=== PATIENT | male | born 1970 | race Caucasian/White ===

== ENCOUNTER 2021-03-30 12:08 | Day surgery (SDC) | payer OTHER ==
[~2021-03-30] VITALS: Ht 185.4 cm; Wt 138.0 kg
[~2021-03-30 12:08] MED LIST: OMEP20ER PO; Prinivil10 MG PO
--- NOTE | 2021-03-30 13:06 | NUR ---
03/30/21 1306 Eunice Gan HISTORY,CHART, MEDICATIONS AND ALLERGIES REVIEWED BEFORE START OF PROCEDURE. PATIENT CONFIRMS NPO STATUS AND AGREES WITH SCHEDULED PROCEDURE. 3-LEAD EKG REVIEWED WITH PHYSICIAN PRIOR TO START OF PROCEDURE. MONITOR INTACT WITH CONTINUOUS PULSE OXIMETRY AND INTERMITTENT BP. SUPPLEMENTAL O2 TO BE TITRATED THROUGHOUT PROCEDURE TO MAINTAIN O2 SATURATION ABOVE 90%. PATIENT DETERMINED TO BE ASA APPROPRIATE FOR SEDATION VIA ANESTHESIA BY DR. LIVE PRIOR TO START PROCEDURE BY DR. BERMEO. SEE ANESTHESIA FLOWSHEET FOR SEDATION
--- NOTE | 2021-03-30 14:22 | NUR ---
Patient up to Ambulate independently. Gait steady. Discharge instructions reviewed with patient. Patient verbalizes understanding. Copy given to patient to take home. Discharged via wheelchair to private car for ride home.
== END 2021-03-30 23:30 | disposition home or self-care (01) ==
LOC: ORSCMMR 12:08 → ORSCSDS 13:15 → ORD 13:15 → ORSCMMR 23:30
PROVIDERS: Student in an Organized Health Care Education/Training Program
PROC: 0DBN8ZX Excision of Sigmoid Colon, Via Natural or Artificial Opening Endoscopic, Diagnostic (ICD-10-PCS; principal; 2021-03-30 13:15)
PROC: 0DBC8ZX Excision of Ileocecal Valve, Via Natural or Artificial Opening Endoscopic, Diagnostic (ICD-10-PCS; principal; 2021-03-30 13:15)
PROC: 0DBP8ZX Excision of Rectum, Via Natural or Artificial Opening Endoscopic, Diagnostic (ICD-10-PCS; principal; 2021-03-30 13:15)
PROC: 0DBK8ZX Excision of Ascending Colon, Via Natural or Artificial Opening Endoscopic, Diagnostic (ICD-10-PCS; principal; 2021-03-30 13:15)
DX: Z12.11 Encounter for screening for malignant neoplasm of colon (principal); D12.0 Benign neoplasm of cecum; D12.2 Benign neoplasm of ascending colon; D12.5 Benign neoplasm of sigmoid colon; D12.8 Benign neoplasm of rectum; I10 Essential (primary) hypertension; Z87.891 Personal history of nicotine dependence; G47.33 Obstructive sleep apnea (adult) (pediatric); K21.9 Gastro-esophageal reflux disease without esophagitis; N18.9 Chronic kidney disease, unspecified; E66.01 Morbid (severe) obesity due to excess calories; Z68.41 Body mass index [BMI] 40.0-44.9, adult; Z79.899 Other long term (current) drug therapy
CPT/HCPCS: 88305; J2001; J2704; J7120

== ENCOUNTER → 2021-12-29 | Outpatient (CLI) | payer OTHER | END | disposition home or self-care (01) | LOC: LAB 19:23 → LAB SHORT 19:23 | DX: R30.0 Dysuria (principal) | CPT/HCPCS: 87086 ==